=== PATIENT | male | born 1940 | race Caucasian/White ===

== ENCOUNTER 2024-09-07 07:39 | Emergency (ER) | payer MEDICARE, BC, SELFPAY ==
[2024-09-07] VITALS (13 sets, daily range): BP systolic 104–170; BP diastolic 61–110; BMI 24.9
--- NOTE | 2024-09-07 08:24 | ED.GENMED ---
History of Present Illness
<ALE Ortega Jr. Last Filed: 09/07/24 15:03>
General
Chief Complaint: Cardiac Symptoms
Source: patient and spouse
Exam Limitations: none
Time Seen by Provider: 09/07/24 08:02
Nursing documentation reviewed up to this point in time: agreed with
History of Present Illness
History of Present Illness:
84-year-old male past medical history of paroxysmal A-fib currently on Eliquis and metoprolol as well as history of hypertension presenting to the emergency department concerns palpitation starting last night denies any chest pain shortness of
breath recent illness or fevers. Initial heart rate upon arrival was 130s however during my examination heart rate hovering between 80 and 110. No distress here
Review of Systems
<ALE Ortega Jr. Last Filed: 09/07/24 15:03>
Review of Systems
Allergies reviewed?: Yes
All Other Systems: ROS reviewed and negative except as documented in HPI and ROS
Phy Exam
<ALE Ortega Jr. Last Filed: 09/07/24 15:03>
Physical Exam
Physical Exam:
GENERAL: Alert , in no apparent distress
EYE: pupils equal and reactive
NECK: Supple, no significant adenopathy.
ENT: o/p clr, mmm.
CARDIAC: Irregularly irregular rate and rhythm
LUNGS: Clear breath sounds bilaterally, no acute respiratory distress, no wheezes/rales/rhonchi
ABDOMEN: Soft, without focal tenderness, no r/g, no cvat
NEUROLOGICAL: Alert and oriented, no focal neuro deficits
SKIN: Warm and dry, skin intact.
MUSCULOSKELETAL: No edema, well perfused.
PSYCH: Normal and appropriate interaction.
Course
<ALE Ortega Jr. Last Filed: 09/07/24 15:03>
Orders/Labs/Results
Orders:
Orders
09/07/24 07:42
Electrocardiogram (*1) Urgent
Reason for Study: Palpitations
EKG- Treatment ONCE
09/07/24 08:12
CMP [Comprehensive Metabolic Panel] Urgent
Complete Blood Count/With Diff Urgent
NT-proBNP Urgent
Troponin I Urgent
09/07/24 08:13
PT/INR [Prothrombin Time] Urgent
PTT Urgent
09/07/24 08:36
Diltiazem HCl [Cardizem] 10 mg IV NOW STA
09/07/24 10:30
Diltiazem HCl [Cardizem] 10 mg IV NOW STA
09/07/24 10:34
Troponin I Urgent
09/07/24 12:50
Lisinopril [Zestril] 20 mg PO NOW STA
NIFEdipine EXTENDED RELEASE [Procardia Xl (Extended Release)] 30 mg PO NOW STA
09/07/24 14:00
Chlorthalidone [Hygroton] 12.5 mg PO ONCE ONE
09/07/24 14:16
0.9% Sodium Chloride 500 ml [Nss] 500 ml IV BOLUS
09/07/24 14:52
Metoprolol Xl [Toprol Xl] 12.5 mg PO NOW STA
Abnormal Lab Results
09/07/24 09/07/24 09/07/24
08:12 08:13 10:34
RBC 4.68 L 10^6/uL
(4.70-6.10)
MCH 31.4 H pg
(27.0-31.0)
MPV 11.3 H fL
(7.4-10.4)
Monocytes % 12.5 H %
(1.7-9.3)
PT 15.8 H Sec
(11.4-14.6)
APTT 39.1 H Sec
(23.4-35.0)
BUN 29 H mg/dl
(9-20)
Glucose 106 H mg/dl
(70-99)
Troponin I 0.061 H* ng/ml 0.065 H* ng/ml
09/07/24 08:12
09/07/24 08:12
Vital Signs
Initial and Last Documented VS:
Initial Vital Signs
Temp Pulse Resp BP Pulse Ox
97.5 F 134 16 170/110 96
09/07/24 07:40 09/07/24 07:40 09/07/24 07:40 09/07/24 07:40 09/07/24 07:40
Last Documented Vital Signs
Temp Pulse Resp BP Pulse Ox
97.5 F 82 17 152/69 97
09/07/24 07:40 09/07/24 14:31 09/07/24 14:31 09/07/24 14:10 09/07/24 14:31
<Sean Spangler, DO - Last Filed: 09/07/24 08:38>
Orders/Labs/Results
Orders:
Orders
09/07/24 07:42
Electrocardiogram (*1) Urgent
Reason for Study: Palpitations
EKG- Treatment ONCE
09/07/24 08:12
CMP [Comprehensive Metabolic Panel] Urgent
Complete Blood Count/With Diff Urgent
NT-proBNP Urgent
Troponin I Urgent
09/07/24 08:13
PT/INR [Prothrombin Time] Urgent
PTT Urgent
09/07/24 08:36
Diltiazem HCl [Cardizem] 10 mg IV NOW STA
09/07/24 10:30
Diltiazem HCl [Cardizem] 10 mg IV NOW STA
09/07/24 10:34
Troponin I Urgent
09/07/24 12:50
Lisinopril [Zestril] 20 mg PO NOW STA
NIFEdipine EXTENDED RELEASE [Procardia Xl (Extended Release)] 30 mg PO NOW STA
09/07/24 14:00
Chlorthalidone [Hygroton] 12.5 mg PO ONCE ONE
09/07/24 14:16
0.9% Sodium Chloride 500 ml [Nss] 500 ml IV BOLUS
09/07/24 14:52
Metoprolol Xl [Toprol Xl] 12.5 mg PO NOW STA
Abnormal Lab Results
09/07/24 09/07/24 09/07/24
08:12 08:13 10:34
RBC 4.68 L 10^6/uL
(4.70-6.10)
MCH 31.4 H pg
(27.0-31.0)
MPV 11.3 H fL
(7.4-10.4)
Monocytes % 12.5 H %
(1.7-9.3)
PT 15.8 H Sec
(11.4-14.6)
APTT 39.1 H Sec
(23.4-35.0)
BUN 29 H mg/dl
(9-20)
Glucose 106 H mg/dl
(70-99)
Troponin I 0.061 H* ng/ml 0.065 H* ng/ml
09/07/24 08:12
09/07/24 08:12
Vital Signs
Initial and Last Documented VS:
Initial Vital Signs
Temp Pulse Resp BP Pulse Ox
97.5 F 134 16 170/110 96
09/07/24 07:40 09/07/24 07:40 09/07/24 07:40 09/07/24 07:40 09/07/24 07:40
Last Documented Vital Signs
Temp Pulse Resp BP Pulse Ox
97.5 F 82 17 152/69 97
09/07/24 07:40 09/07/24 14:31 09/07/24 14:31 12/18/24 14:10 09/07/24 14:31
<Benito Lyons Jr., PA-C - Last Filed: 09/07/24 15:03>
MDM/Problems Addressed
MDM/Problems Addressed:
84-year-old male presenting to the emergency department today with concerns of palpitation starting last night ongoing this morning. Does have a history of atrial fibrillation was diagnosed with it 1 year ago has been take metoprolol and Eliquis as
prescribed. Denies chest pain shortness of breath or additional concerns otherwise. Here patient is in no distress heart rate in the 80s to 110s. Options of cardioversion or monitoring were discussed with the patient. He was heavily against
getting cardioverted. He was given a dose of Cardizem. He had improvement heart rate into the 70s to 90s blood pressure remained stable. Initial troponin was slightly elevated repeated without significant increase. BMP 700s slightly elevated BUN
to creatinine ratio was given fluids. Otherwise did not break out of the rhythm but heart rate stayed between 70 and 90 Case discussed with cardiology who claims outpatient [facility] if he is unwilling to get cardioversion at this time. Stable for
discharge return precautions given.
<Benito Lyons Jr., PA-C - Last Filed: 09/07/24 15:03>
*Critical Care Note
Total Time (30-74mins, 75-104mins- exclusive of procedures): Not Applicable
ED Attending Note
<Benito Lyons Jr., PA-C - Last Filed: 09/07/24 15:03>
-
Portions of this chart may have been created with voice recognition software.� Occasional wrong word or��sound alike� substitutions may have occurred due to the inherent limitations of voice recognition software.
<Sean Spangler DO - Last Filed: 09/07/24 08:38>
ED Attending Note
Patient seen and examined by attending physician: Yes
I performed the substantive portion of visit, reviewed & personally made and approve the management plan that is documented in note by myself or KIKE.: Yes
ED Attending Note:
I have seen and evaluated the patient with a [id number] encounter. I have spoken to the advance practicer provider and involved in the medical history, the physical exam, medical decision making.
Evaluation and management service: agree unless noted differently below.
Results interpretation: agree unless noted differently below.
Focused HPI: 84-year-old male presenting with palpitations. Patient found to be in A-fib. He had an episode like this 1 year ago and has been compliant with his metoprolol and Eliquis. He denies any change in medications. On arrival, his initial
tachycardia has now transition to rate controlled A-fib. Patient states he was converted to normal sinus rhythm with IV Cardizem last time
Physical exam: Sitting in bed comfortably. No acute distress. Irregular rhythm. No leg edema
Medical Decision Making: Will give dose of IV Cardizem and continue to reassess
Discharge Plan
Departure
Patient Disposition: Home (Routine Discharge)
Date of Disposition: 09/07/24
Time of Disposition: 15:00
Patient with high blood pressure during this ER visit?: No
Condition: Good
Covid-19: Not Applicable
Discharge Problem:
Atrial fibrillation, rapid
Instructions: Atrial fibrillation - Discharge instructions
Prescriptions:
New
metoprolol succinate 25 mg tablet extended release 24 hr
25 mg PO DAILY 14 Days Qty: 14 0RF
No Action
chlorthalidone 25 mg tablet
12.5 mg PO DAILY
acetaminophen 650 mg Tablet Extended Release
1,300 mg PO DAILY
acetaminophen 650 mg Tablet Extended Release
650 mg PO QPM
methenamine hippurate 1 gram tablet
1 g PO BID
alprazolam 0.25 mg tablet
0.25 mg PO DAILY
ascorbic acid (vitamin C) [Vitamin C] 250 mg Tablet
250 mg PO DAILY
Citrucel 500 mg Tablet
500 mg PO DAILY
lisinopril 40 mg tablet
40 mg PO DAILY
loratadine 10 mg Tablet
10 mg PO DAILY
esomeprazole magnesium [Nexium] 20 mg Capsule,Delayed Release(Dr/Ec)
20 mg PO DAILY
cholecalciferol (vitamin D3) [Vitamin D3] 25 mcg (1,000 unit) Tablet
75 mcg PO DAILY
[id number] [Glucosamine-Chondroitin 3X] 750-625-30 mg Tablet
1 tab PO BID
Eliquis 5 mg Tablet
5 mg PO BID Qty: 60 0RF
metoprolol succinate 25 mg Tablet Extended Release 24 Hr
12.5 mg PO DAILY Qty: 30 0RF
nifedipine [Nifedical XL] 30 mg Tablet Extended Release 24hr
30 mg PO DAILY
Visbiome 112.5 billion cell Capsule
1 cap PO DAILY
Referrals:
Alexi Allison MD [Family Provider] -
Activity Restrictions/Additional Instructions:
You came to the emergency department today with concerns of atrial fibrillation. Here you had a reassuring assessment and your heart rate and blood pressure was controlled well. 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
metoprolol 25 mg once daily until follow-up.
Interventions
Interventions:
*Risk Screen - Suicide Last Done: 09/07/24 07:43
*General Assessment Last Done: 09/07/24 08:01
*Neglect/Abuse Screening Last Done: 09/07/24 07:43
ED- Fall Risk Assessment Last Done: 09/07/24 08:01
*ED COVID-19 Vaccine History Last Done: 09/07/24 08:01
ED- Pulmonary Assessment Last Done: 09/07/24 08:01
ED- Cardiac Assessment Last Done: 09/07/24 08:01
Discharge Date and Time
Print Language: CHILEAN
[2024-09-07 08:28] LABS: % Basophils 0.4 % (0-2); % Immature Granulocytes 0.4 % (0-0.5); % Lymphocytes 36.8 % (20.5-51.1); % Monocytes 12.5 % (1.7-9.3); % Neutrophils 47.9 % (42.2-75.2); Absolute Eosinophils 0.1 10^3/uL (0-0.7); Absolute Lymphocytes 1.9 10^3/uL (1.2-3.4); Absolute Monocytes 0.6 10^3/uL (0.1-0.6); Absolute Neutrophils 2.5 10^3/uL (1.4-6.5); Hemoglobin 14.7 g/dL (13.0-18.0); Mean Corp Hgb Conc. 34.2 g/dL (33.0-37.0); Mean Corpuscular Hgb 31.4 pg (27.0-31.0); Mean Corpuscular Volume 91.9 fL (80.0-94.0); Mean Platelet Volume 11.3 fL (7.4-10.4); Nucleated Red Blood Cells % 0 % (-); Platelet Count 211 10^3/uL (130-400); Red Blood Cell Count 4.68 10^6/uL (4.70-6.10); Red Cell Dist. Width 12.3 % (11.5-14.5); White Blood Cell Count 5.1 10^3/uL (4.8-10.8)
[2024-09-07 08:36] LABS: INR 1.21; PT 15.8 Sec (11.4-14.6)
[2024-09-07 08:37] LABS: APTT 39.1 Sec (23.4-35.0)
[2024-09-07 08:41] LABS: ALT (SGPT) 24 U/L (0-50); AST (SGOT) 35 U/L (17-59); Albumin 4.5 g/dl (3.5-5.0); Alkaline Phosphatase 50 U/L (38-126); Blood Urea Nitrogen 29 mg/dl (9-20); Calcium 9.3 mg/dl (8.4-10.2); Carbon Dioxide 29 mmol/L (22-30); Chloride 100 mmol/L (98-107); Estimated Creatinine Clearance 53 ml/min; Glucose 106 mg/dl (70-99); Potassium 4.2 mmol/L (3.5-5.1); Sodium 138 mmol/L (135-145); Total Bilirubin 0.4 mg/dl (0.2-1.3); Total Protein 7.3 g/dl (6.3-8.2); eGFR > 60.00
[2024-09-07] MEDS: CARDIZEM 10 MG IV ×2 (08:53→10:35)
[2024-09-07 08:58] LABS: NT-proBNP 734 pg/ml; Troponin I 0.061 ng/ml
[2024-09-07 11:18] LABS: Troponin I 0.065 ng/ml
[2024-09-07] MEDS: ZESTRIL 20 MG PO (13:10)
[2024-09-07] MEDS: PROCARDIA XL (EXTENDED RELEASE) 30 MG PO (13:11)
[2024-09-07] MEDS: Hygroton 12.5 MG PO (13:29)
[2024-09-07] MEDS: NSS 500 IV (14:24)
[2024-09-07] MEDS: TOPROL XL 12.5 MG PO (15:07)
== END 2024-09-07 15:15 | disposition home or self-care (01) ==
LOC: EMR 07:39
PROVIDERS: Physician Assistant; EMERGENCY PHYSICIAN Student in an Organized Health Care Education/Training Program; FAMILY PHYSICIAN Internal Medicine
DX: I48.0 Paroxysmal atrial fibrillation (principal); I10 Essential (primary) hypertension; Z79.01 Long term (current) use of anticoagulants
CPT/HCPCS: 99284; 96374; 96361; 96376; 80053; 83880; 84484; 85025; 85610; 85730; 93005